=== PATIENT | female | born 1980 | race Caucasian/White ===

== ENCOUNTER 2018-02-20 10:12 | Emergency (ER) | END 2018-02-20 12:20 | disposition home or self-care (01) ==

== ENCOUNTER 2018-02-20 12:26 | Outpatient (CLI) | END 2018-02-20 15:50 | disposition home or self-care (01) ==

== ENCOUNTER 2018-06-23 02:30 | Inpatient (IN) | END 2018-06-25 18:45 | disposition home or self-care (01) | DRG 775 ==